=== PATIENT | female | born 1950 | race Caucasian/White ===

== ENCOUNTER 2016-06-05 10:51 | Emergency (ER) | payer OTHER, MEDICARE ==
[2016-06-05 11:05] VITALS: BP 124/91; BMI 32.8
[2016-06-05] MEDS ORDERED: BACITRACIN ZINC ONE (11:26)
--- NOTE | 2016-06-05 11:36 | DR.LACERAT ---
HPI - Time Seen Time seen: 11:05 - Primary Care Physician Primary Care Physician: Candie CHUNG - Complaints Chief Complaint Doctors Comments: Patient fell out of bed and injured left knee sustained a 10cm laceration. Deines pain. Chief Complaint:: PT. FELL OUT OF HER BED THIS MORNING, HURTING HER LEFT KNEE. LACERATION TO LEFT KNEE THAT IS CIRCULAR IN NATURE. - Source History Provided: Patient - Mode of Arrival Mode of Arrival: Ambulatory - Timing Onset of Chief Complaint: 06/05/16 PMH - PMH Past Medical History: Yes Past Medical History: Arthritis Past Surgical History: Yes Surgical History: Ortho Surgery - Family History History of Family Medical Conditions: Yes Family Medical History: Hypertension - Social History Does patient currently use any type of tobacco product: Yes Have you used tobacco products in the last 12 months: Yes Type of Tobacco Use: Cigarettes Does any household member use tobacco: No Alcohol Use: None Do you use any recreational Drugs:: No Lives With: Spouse Lives Where: Home - infectious screening In the last 2 months have you had wt loss of >10#?: NO Have you had fever, night sweats or hemotysis?: No Have you traveled outside the country in the last 6 months?: No Isolation: Standard ROS - Review of Systems Constitutional: No Symptoms Reported Eyes: No Symptoms Reported ENTM: No Symptoms Reported, Hearing Loss Cardiovascular: No Symptoms Reported Gastrointestinal/Abdominal: No Symptoms Reported Genitourinary: No Symptoms Reported Neurological: No Symptoms Reported Musculoskeletal: No Symptoms Reported Integumentary: Other (laceration of left knee) Hematologic/Lymphatic: No Symptoms Reported Endocrine: No Symptoms Reported Psychiatric: No Symptoms Reported All Other Systems: Reviewed and Negative PE - Vital Signs Vitals: Temperature 98.6 F Pulse Rate 96 Respiratory Rate 16 Blood Pressure 124/91 O2 Sat by Pulse Oximetry 991 - General Limitations: No Limitations General Appearance: Alert, In No Apparent Distress - Head Head Exam: Normal Inspection, Atraumatic - ENT ENT Exam: Normal Exam - Neck Neck Exam: Normal Inspection - Chest Chest Inspection: Normal Inspection - Respiratory Respiratory Exam: Normal Lung Sounds Bilat Respiratory Exam: Bilateral Clear to Auscultation - Cardiovascular Cardiovascular Exam: Regular Rate - Abdominal Exam Abdominal Exam: Normal Inspection, Normal Bowel Sounds Abdominal Tenderness: negative: RUQ, RLQ, LUQ, LLQ, Epigastrium, Suprapubic, Diffuse, Mild, Moderate, Severe, Other - Extremities Extremities Exam: Normal Inspection, Other (left knee with a 10 cm laceration ) - Back Back Exam: Normal Inspection - Neurologic Neurological Exam: Alert, Oriented X3, CN II-XII Intact - Psychiatric Psychiatric Exam: Normal Affect - Skin Skin Exam: negative: Intact (left knee laceration) Type of Lesion: Rash Distribution: Generalized Description: Size (10cn) Course - Reevaluation 1st: Improved Procedures - Laceration/Wound Repair Left Knee Wound Length (cm): 10 Wound's Depth, Shape: Irregular Wound Explored: clean Anesthesia: 1% Lidocaine Volume Anesthetic (ccs): 10 Wound Repaired With: sutures (12) Suture Size/Type: 3:0, Ethilion, Other (hilda 5) - Diagnosis Discharge Problem: Laceration of knee, left Qualifiers: Encounter type: initial encounter Qualified Code(s): S81.012A - Laceration without foreign body, left knee, initial encounter - Discharge Plan Condition: Stable - Follow ups/Referrals Follow ups/Referrals: LEA CHUNG [Primary Care Provider] - 3 days - Instructions
[2016-06-05] MEDS ORDERED: BACTROBAN OINT TOP ONE (11:46)
== END 2016-06-05 11:47 | disposition home or self-care (01) ==
LOC: ER 10:56
PROC: 0SQD0ZZ Repair Left Knee Joint, Open Approach (ICD-10-PCS; principal; 2016-06-05)
DX: S81.012A Laceration without foreign body, left knee, initial encounter (principal); W06.XXXA Fall from bed, initial encounter; Y92.9 Unspecified place or not applicable
CPT/HCPCS: 12004; 99282

== ENCOUNTER → 2016-06-19 | Outpatient (CLI) | payer OTHER, MEDICARE ==
[2016-06-05 11:05] VITALS: BP 124/91
--- NOTE | 2016-06-20 14:50 | MRI ---
History: Chronic right hip pain. Technique: Multiplanar, multi sequence MR imaging of the right hip was performed without contrast. Comparison: MRI of the pelvis dated 03/03/2013. Findings: Visualized osseous structures demonstrate normal bone marrow signal without evidence of osteonecrosi s, stress reaction, or stress fracture. Large [id number] coronal STIR images through the pelvis demonstrate fluid within the trochanteric bursae bilaterally right more so than left, and in keeping with trochanteric bursitis. There are po stsurgical changes noted in the right greater trochanter consistent with previous gluteal tendon rep air. There is a recurrent partial thickness tear of the gluteus medius tendon at its insertion. Ther e is a focal full-thickness tear of the posterior gluteus minimus at its insertion which measure 8 m m in AP dimension. There is severe fatty atrophy of the gluteus medius and minimus bilaterally, as d emonstrated on coronal T1 large ggdva-dh-ipng imaging. There is no significant hip effusion. There is mild bilateral hip osteoarthrosis. There is a tear of the superior labrum of the right hip. Large ypeln-gq-vvar coronal T1 images demonstrate over covera ge of the femoral heads bilaterally with a center edge angles of greater than 50, this can be assoc iated with the clinical diagnosis of femoroacetabular impingement. In addition, there is mild thicke emmanuel of the iliofemoral ligament of the right hip. There is fluid within the right obturator externu s bursa compatible with bursitis. There is tendinosis of the hamstring origin bilaterally. Impression: 1. Focal full-thickness tear of the posterior gluteus minimus of the right hip. There is a partial t hickness tear of the right gluteus medius. There is severe fatty atrophy of the gluteus medius and m inimus bilaterally. 2. Bilateral trochanteric bursitis 3. Right obturator externus bursitis. 4. Mild bilateral hip osteoarthrosis. There is a superior labral tear of the right hip. 5. Over coverage of the femoral heads bilaterally which can be associated with the clinical diagnosi s of femoroacetabular impingement. 6. Tendinosis of the right hamstring origin. 7. Other findings as discussed above. Reported By:
== END ==
LOC: RAD 11:42
PROVIDERS: ATTEND Nurse Practitioner Family
DX: M25.551 Pain in right hip (principal); M16.11 Unilateral primary osteoarthritis, right hip
CPT/HCPCS: 73721

== ENCOUNTER → 2017-01-15 | Outpatient (CLI) | payer OTHER ==
--- NOTE | 2017-01-15 10:39 | MRI ---
MRI left knee without contrast Indication: Knee pain after twisting injury Comparison: Radiographs 12/20/2014 Technique: Multiplanar multi sequence MR images of the left knee were obtained without contrast. Findings: No acute fracture or dislocation. There is diffuse moderate to advanced tricompartmental ch ondrosis, with areas of full-thickness chondral thinning along the central weight-bearing medial comp artment and along the lateral patellar facet. There is minimal subchondral marrow edema along the lat eral patellar facet and medial tibial plateau. Moderate tricompartmental marginal osteophytosis is no fiona. There is diffuse free edge fraying of the bilateral menisci, with maceration of the lateral meniscal anterior horn, associated with a 6 x 5 mm parameniscal cyst (image 27, series 801).. Additionally, th ere is oblique horizontal tear of the medial meniscal posterior horn and root. There is mucoid degeneration of the otherwise intact ACL. The PCL, mcl, major lateral stabilizers, an d extensor mechanism are intact. There is a small joint effusion. No large intra-articular loose body identified. No popliteal cyst. There is nonspecific subcutaneous edema about the knee, without discr ete collection. Impression: 1. Moderate to advanced tricompartmental DJD, with areas of high-grade chondrosis in the weight-beari ng medial compartment and along the lateral patellar facet. 2. Maceration of the lateral meniscal anterior horn with associated subcentimeter parameniscal cyst. Oblique horizontal tear of the medial meniscal posterior horn/root. Diffuse meniscal free edge frayin g bilaterally. 3. Mucoid ACL, small joint effusion. Reported By:
== END | disposition home or self-care (01) | DRG 556 ==
LOC: RAD 08:20
PROVIDERS: ATTEND Nurse Practitioner Family
DX: M25.562 Pain in left knee (principal); M17.12 Unilateral primary osteoarthritis, left knee; R26.2 Difficulty in walking, not elsewhere classified; S83.282A Other tear of lateral meniscus, current injury, left knee, initial encounter; X58.XXXA Exposure to other specified factors, initial encounter; M25.462 Effusion, left knee
CPT/HCPCS: 73721

== ENCOUNTER 2021-08-20 14:18 | Inpatient (IN) ==
[2021-08-20] MEDS ORDERED: ZOSYN VIAL 3.375 GRAMS 3.375 G in NS 100 ML IV 100 ML IV SCH (17:11)
[2021-08-20] MEDS ORDERED: PHARMACY CONSULT - VANCOMYCIN XX SCH (17:11)
[2021-08-20 18:03] VITALS: BMI 30.4
[2021-08-20 18:10] LABS: BASOPHILS # (AUTO) 0.1 X10^3/uL (0.0-0.1); BASOPHILS % (AUTO) 0.7 % (0.2-1.0); EOSINOPHILS # (AUTO) 0.1 x10^3/uL (0.0-0.2); EOSINOPHILS % (AUTO) 1.1 % (0.9-2.9); HEMATOCRIT 34.7 % (36.0-47.0); HEMOGLOBIN 12.3 g/dL (12.0-16.0); LYMPHOCYTES # (AUTO) 1.2 X10^3/uL (1.3-2.9); LYMPHOCYTES % (AUTO) 13.7 % (21.0-51.0); MEAN CORPUSCULAR HEMOGLOBIN 30.9 pg (27.0-34.0); MEAN CORPUSCULAR HGB CONC 35.4 g/dL (33.0-35.0); MEAN CORPUSCULAR VOLUME 87.4 fL (80.0-100.0); MEAN PLATELET VOLUME 7.6 fL (7.4-11.0); MONOCYTES # (AUTO) 1.2 x10^3/uL (0.3-0.8); NEUTROPHILS # (AUTO) 5.9 x10^3/uL (2.2-4.8); NEUTROPHILS % (AUTO) 70.5 % (42.0-75.0); RED BLOOD COUNT 3.97 X10^6/uL (3.5-5.4); RED CELL DISTRIBUTION WIDTH 14.2 % (11.6-16.5); WHITE BLOOD COUNT 8.4 X10^3/uL (3.6-10.0)
[2021-08-20 18:59] LABS: ALANINE AMINOTRANSFERASE 32 Units/L (12-78); ALBUMIN 3.4 g/dL (3.4-5.0); ALKALINE PHOSPHATASE 75 Units/L (46-116); ASPARTATE AMINO TRANSFERASE 42 Units/L (15-37); BLOOD UREA NITROGEN 16 mg/dL (7-18); CALCIUM 8.1 mg/dL (8.5-10.1); CARBON DIOXIDE 32.4 mmol/L (21-32); CHLORIDE 83 mmol/L (98-107); TOTAL PROTEIN 6.4 g/dL (6.4-8.2); eGFR NON BLACK RACES 36 (>60)
[2021-08-20 19:06] LABS: SODIUM 121 mmol/L (136-145)
[2021-08-20] MEDS ORDERED: MICRO K EXTEN CAP 10 MEQ PO PRN (19:10)
[2021-08-20] MEDS ORDERED: POTASSIUM CHL 40 MEQ/NS 0.45% 500 ML IV PRN (19:10)
[2021-08-20] MEDS ORDERED: KLOR-CON PO PRN (19:10)
[2021-08-20] MEDS ORDERED: K-RIDER 10 MEQ/NS 100 ML 10 MEQ/100 ML BAG IV PRN (19:10)
[2021-08-20] MEDS ORDERED: POTASSIUM CHL 60 MEQ/NS 0.45% 500 ML IV PRN (19:10)
[2021-08-20] MEDS ORDERED: POTASSIUM CHLORIDE LIQ 20 MEQ UDC PO PRN (19:10)
[2021-08-20] MEDS ORDERED: MAGNESIUM SULFATE 1 GRAM/100 mL PREMIX 1 G/100 ML BAG IV PRN (19:10)
[2021-08-20] MEDS: NS 1,000 ML IV 1,000 ML IV SCH (19:23)
[2021-08-20] MEDS: K-DUR TAB 20 MEQ PO PRN ×2 (19:25→21:52)
[2021-08-20] MEDS ORDERED: VANCOMYCIN HCL ONE (19:39)
[2021-08-20] MEDS ORDERED: NS 250 ML IV 250 ML IV ONE (19:39)
[2021-08-20] MEDS: VANCOMYCIN 1 GRAM PREMIX (ADDVANTAGE) 250 ML IV ONE ×3 (19:42→19:43)
[2021-08-20] MEDS: TORADOL 30 MG VIAL IVP PRN (20:00)
[2021-08-20] MEDS ORDERED: VANCOMYCIN 1 GRAM PREMIX (ADDVANTAGE) 250 ML IV SCH (20:00)
[2021-08-20] MEDS: ZOSYN VIAL 3.375 GRAMS 3.375 G in NS 100 ML IV 100 ML IV SCH (21:20)
--- NOTE | 2021-08-20 21:46 | RAD ---
HISTORYRIGHT LOWER EXT. CELLULITISSTUDYCHEST, 1 VIEWCOMPARISONNone availableTECHNIQUEChest radiographic imaging, AP portable projection, 1 imageFINDINGSNo cardiomegaly.No focal airspace disease.No pleural effusion.No pneumothorax.No acute osseous abnormality.IMPRESSIONNo imaging findings of acute cardiopulmonary disease.Electronically signed by: Manohar Humphrey (Aug 20, 2021 21:45:51)
[2021-08-21] MEDS: K-DUR TAB 20 MEQ PO PRN ×2 (00:11→09:28)
[2021-08-21] MEDS: TORADOL 30 MG VIAL IVP PRN (03:57)
[2021-08-21] MEDS: TYLENOL 325 MG TAB PO PRN ×2 (03:58→18:26)
[2021-08-21] MEDS ORDERED: NS 100 ML IV 100 ML ONE (04:54)
[2021-08-21] MEDS: ZOSYN VIAL 3.375 GRAMS 3.375 G in NS 100 ML IV 100 ML IV SCH ×3 (05:03→21:07)
[2021-08-21 05:18] LABS: BASOPHILS # (AUTO) 0.1 X10^3/uL (0.0-0.1); BASOPHILS % (AUTO) 0.7 % (0.2-1.0); EOSINOPHILS # (AUTO) 0.1 x10^3/uL (0.0-0.2); EOSINOPHILS % (AUTO) 1.9 % (0.9-2.9); HEMATOCRIT 32.2 % (36.0-47.0); HEMOGLOBIN 11.5 g/dL (12.0-16.0); LYMPHOCYTES # (AUTO) 1.3 X10^3/uL (1.3-2.9); LYMPHOCYTES % (AUTO) 17.1 % (21.0-51.0); MEAN CORPUSCULAR HEMOGLOBIN 31.2 pg (27.0-34.0); MEAN CORPUSCULAR HGB CONC 35.6 g/dL (33.0-35.0); MEAN CORPUSCULAR VOLUME 87.8 fL (80.0-100.0); MEAN PLATELET VOLUME 7.8 fL (7.4-11.0); MONOCYTES # (AUTO) 1.1 x10^3/uL (0.3-0.8); MONOCYTES % (AUTO) 14.6 % (0.0-13.0); NEUTROPHILS # (AUTO) 4.9 x10^3/uL (2.2-4.8); NEUTROPHILS % (AUTO) 65.7 % (42.0-75.0); RED BLOOD COUNT 3.67 X10^6/uL (3.5-5.4); RED CELL DISTRIBUTION WIDTH 13.9 % (11.6-16.5); WHITE BLOOD COUNT 7.4 X10^3/uL (3.6-10.0)
[2021-08-21 05:28] LABS: ALANINE AMINOTRANSFERASE 30 Units/L (12-78); ALKALINE PHOSPHATASE 68 Units/L (46-116); ASPARTATE AMINO TRANSFERASE 38 Units/L (15-37); BLOOD UREA NITROGEN 14 mg/dL (7-18); CALCIUM 8.2 mg/dL (8.5-10.1); CARBON DIOXIDE 29.4 mmol/L (21-32); CHLORIDE 91 mmol/L (98-107); CREATININE 1.23 mg/dL (0.55-1.02); SODIUM 126 mmol/L (136-145); TOTAL PROTEIN 5.8 g/dL (6.4-8.2); eGFR NON BLACK RACES 46 (>60)
[2021-08-21] MEDS: NS 1,000 ML IV 1,000 ML IV SCH ×3 (06:11→20:44)
[2021-08-21] MEDS: NORCO 7.5/325 MG TAB PO PRN ×3 (09:10→23:18)
[2021-08-21] MEDS: VANCOMYCIN IV *PREMIX 1 G/200 ML BAG 1 G/200 ML PIGGYBACK IV SCH (09:28)
[2021-08-21] MEDS ORDERED: LINZESS PO SCH (10:00)
[2021-08-21] MEDS: FLEXERIL TAB 10 MG PO SCH ×3 (10:33→21:05)
[2021-08-21] MEDS: NORVASC TAB 5 MG PO SCH (10:34)
[2021-08-21] MEDS: MOBIC TAB 15 MG PO SCH (10:34)
[2021-08-21] MEDS: TOPAMAX TAB 100 MG PO SCH ×2 (10:34→10:51)
[2021-08-21] MEDS: PEPCID TAB 20 MG PO SCH ×2 (10:34→20:32)
[2021-08-21] MEDS: TENORMIN PO SCH ×2 (10:35→20:33)
[2021-08-21] MEDS: ZAROXOLYN PO SCH (10:45)
[2021-08-21] MEDS ORDERED: NS 250 ML IV 250 ML IV ONE (14:41)
[2021-08-21] MEDS: LOVENOX INJ 40 MG SYR SC SCH (17:53)
[2021-08-21] MEDS ORDERED: VANCOMYCIN 1 GRAM PREMIX (ADDVANTAGE) 250 ML IV SCH (18:00)
[2021-08-21] MEDS: K-DUR TAB 20 MEQ PO SCH (20:31)
[2021-08-21] MEDS ORDERED: SINGULAIR TAB 10 MG PO SCH (21:00)
[2021-08-21] MEDS ORDERED: ZyrTEC TAB 10 MG PO SCH (21:00)
[2021-08-21] MEDS ORDERED: RESTORIL CAP 15 MG PO SCH (21:00)
[2021-08-21] MEDS ORDERED: SEROquel TAB 25 mg PO SCH (21:00)
[2021-08-21] MEDS ORDERED: ZOCOR TAB 40 MG PO SCH (21:00)
[2021-08-21] MEDS: SANTYL EXT SCH (22:48)
[2021-08-22 04:12] LABS: BASOPHILS % (AUTO) 0.3 % (0.2-1.0); EOSINOPHILS # (AUTO) 0.1 x10^3/uL (0.0-0.2); EOSINOPHILS % (AUTO) 1.6 % (0.9-2.9); HEMATOCRIT 32.2 % (36.0-47.0); HEMOGLOBIN 11.4 g/dL (12.0-16.0); LYMPHOCYTES # (AUTO) 1.1 X10^3/uL (1.3-2.9); LYMPHOCYTES % (AUTO) 18.3 % (21.0-51.0); MEAN CORPUSCULAR HEMOGLOBIN 31.8 pg (27.0-34.0); MEAN CORPUSCULAR HGB CONC 35.3 g/dL (33.0-35.0); MEAN PLATELET VOLUME 7.9 fL (7.4-11.0); MONOCYTES # (AUTO) 0.9 x10^3/uL (0.3-0.8); MONOCYTES % (AUTO) 14.5 % (0.0-13.0); NEUTROPHILS # (AUTO) 4.1 x10^3/uL (2.2-4.8); NEUTROPHILS % (AUTO) 65.3 % (42.0-75.0); RED BLOOD COUNT 3.58 X10^6/uL (3.5-5.4); RED CELL DISTRIBUTION WIDTH 14.4 % (11.6-16.5); WHITE BLOOD COUNT 6.2 X10^3/uL (3.6-10.0)
[2021-08-22 04:19] LABS: ALANINE AMINOTRANSFERASE 27 Units/L (12-78); ALBUMIN 2.7 g/dL (3.4-5.0); ALKALINE PHOSPHATASE 64 Units/L (46-116); ASPARTATE AMINO TRANSFERASE 27 Units/L (15-37); BLOOD UREA NITROGEN 12 mg/dL (7-18); CALCIUM 7.8 mg/dL (8.5-10.1); CARBON DIOXIDE 26.2 mmol/L (21-32); CHLORIDE 98 mmol/L (98-107); COR CA(FOR HYPOALB) 8.8 mg/dL (8.5-10.1); COR NA(FOR HYPERGLY) 131 mmol/L (136-145); CREATININE 1.12 mg/dL (0.55-1.02); SODIUM 131 mmol/L (136-145); TOTAL PROTEIN 5.4 g/dL (6.4-8.2); eGFR NON BLACK RACES 51 (>60)
[2021-08-22] MEDS: FLEXERIL TAB 10 MG PO SCH ×2 (05:31→15:09)
[2021-08-22] MEDS: ZOSYN VIAL 3.375 GRAMS 3.375 G in NS 100 ML IV 100 ML IV SCH (05:32)
[2021-08-22] MEDS: SANTYL EXT SCH ×2 (05:32→15:09)
[2021-08-22] MEDS: K-DUR TAB 20 MEQ PO SCH (08:13)
[2021-08-22] MEDS: TENORMIN PO SCH (08:14)
[2021-08-22] MEDS: LOVENOX INJ 40 MG SYR SC SCH (08:14)
[2021-08-22] MEDS: NORVASC TAB 5 MG PO SCH (08:15)
[2021-08-22] MEDS: MOBIC TAB 15 MG PO SCH (08:15)
[2021-08-22] MEDS: ZAROXOLYN PO SCH (08:16)
[2021-08-22] MEDS: VANCOMYCIN IV *PREMIX 1 G/200 ML BAG 1 G/200 ML PIGGYBACK IV SCH (08:16)
[2021-08-22] MEDS: PEPCID TAB 20 MG PO SCH (08:16)
[2021-08-22] MEDS: NS 1,000 ML IV 1,000 ML IV SCH (08:31)
[2021-08-22] MEDS: NORCO 7.5/325 MG TAB PO PRN ×2 (08:47→15:10)
--- NOTE | 2021-08-22 09:13 | DR.H&P ---
H&P Allergies Allergies Allergy/AdvReac Type Severity Reaction Status Date / Time No Known Drug Allergies Allergy Verified 04/01/21 17:41 Past Medical History Past Medical History: Hypertension Past Surgical History Surgical History: Hysterectomy and Ortho Surgery Family History Family Medical History: Sudden Cardiac Social History Alcohol Use: None Drug Use: None Medications Home Medications: No Known Drug Allergies Allergy (Verified 04/01/21 17:41) CONTINUE taking the following medications amlodipine 5 mg tablet 5 mg PO DAILY 08/21/21 [History] atenolol 25 mg tablet 25 mg PO BID 08/21/21 [History] cetirizine 10 mg tablet 10 mg PO HS 08/21/21 [History] famotidine 20 mg tablet 20 mg PO BID 08/21/21 [History] linaclotide 145 mcg capsule (Linzess) 145 mcg PO DAILY 08/21/21 [History] meloxicam 15 mg tablet 15 mg PO DAILY 08/21/21 [History] metolazone 2.5 mg tablet 2.5 mg PO DAILY 08/21/21 [History] potassium chloride 20 mEq tablet,extended release(part/cryst) 20 meq PO BID 08/21/21 [History] quetiapine 25 mg tablet 25 mg PO HS 08/21/21 [History] simvastatin 40 mg tablet 40 mg PO HS 08/21/21 [History] temazepam 30 mg capsule 30 mg PO HS 08/21/21 [History] Labs Result Diagrams: 08/22/21 03:35 08/22/21 03:35 Labs: 08/20/21 18:26 Leg - Left Wound Gram Stain - Final 08/20/21 18:26 Leg - Left Wound Culture - Preliminary 08/20/21 18:26 Knee - Left Wound Gram Stain - Final 08/20/21 18:26 Knee - Left Wound Culture - Preliminary 08/20/21 18:26 Leg - Right Wound Gram Stain - Final 08/20/21 18:26 Leg - Right Wound Culture - Preliminary Laboratory WBC 6.2 X10^3/uL (3.6-10.0) 08/22/21 03:35 RBC 3.58 X10^6/uL (3.5-5.4) 08/22/21 03:35 Hgb 11.4 g/dL (12.0-16.0) L 08/22/21 03:35 Hct 32.2 % (36.0-47.0) L 08/22/21 03:35 MCV 90.0 fL (80.0-100.0) 08/22/21 03:35 MCH 31.8 pg (27.0-34.0) 08/22/21 03:35 MCHC 35.3 g/dL (33.0-35.0) H 08/22/21 03:35 RDW 14.4 % (11.6-16.5) 08/22/21 03:35 Plt Count 329 X10^3/uL (150.0-450.0) 08/22/21 03:35 MPV 7.9 fL (7.4-11.0) 08/22/21 03:35 Neut % (Auto) 65.3 % (42.0-75.0) 08/22/21 03:35 Lymph % (Auto) 18.3 % (21.0-51.0) L 08/22/21 03:35 [place]berry % (Auto) 14.5 % (0.0-13.0) H 08/22/21 03:35 Eos % (Auto) 1.6 % (0.9-2.9) 08/22/21 03:35 Baso % (Auto) 0.3 % (0.2-1.0) 08/22/21 03:35 Neut # (Auto) 4.1 x10^3/uL (2.2-4.8) 08/22/21 03:35 Lymph # (Auto) 1.1 X10^3/uL (1.3-2.9) L 08/22/21 03:35 [place]berry # (Auto) 0.9 x10^3/uL (0.3-0.8) H 08/22/21 03:35 Eos # (Auto) 0.1 x10^3/uL (0.0-0.2) 08/22/21 03:35 Baso # (Auto) 0.0 X10^3/uL (0.0-0.1) 08/22/21 03:35 Absolute Nucleated RBC 0.0 /100WBC 08/22/21 03:35 Sodium 131 mmol/L (136-145) L 08/22/21 03:35 Corrected Sodium 131 mmol/L (136-145) L 08/22/21 03:35 Potassium 3.6 mmol/L (3.5-5.1) 08/22/21 03:35 Chloride 98 mmol/L (98-107) 08/22/21 03:35 Carbon Dioxide 26.2 mmol/L (21-32) 08/22/21 03:35 BUN 12 mg/dL (7-18) 08/22/21 03:35 Creatinine 1.12 mg/dL (0.55-1.02) H 08/22/21 03:35 Est GFR (MDRD) Af Amer > 60 (>60) 08/22/21 03:35 Est GFR (MDRD) Non-Af 51 (>60) L 08/22/21 03:35 Glucose 118 mg/dL (65-99) H 08/22/21 03:35 Calcium 7.8 mg/dL (8.5-10.1) L 08/22/21 03:35 Corrected Calcium 8.8 mg/dL (8.5-10.1) 08/22/21 03:35 Magnesium 2.0 mg/dL (1.7-2.9) 08/20/21 18:40 Total Bilirubin 0.40 mg/dL (0.2-1.0) 08/22/21 03:35 AST 27 Units/L (15-37) 08/22/21 03:35 ALT 27 Units/L (12-78) 08/22/21 03:35 Alkaline Phosphatase 64 Units/L (46-116) 08/22/21 03:35 Total Protein 5.4 g/dL (6.4-8.2) L 08/22/21 03:35 Albumin 2.7 g/dL (3.4-5.0) L 08/22/21 03:35 Globulin 2.7 g/dL (2.5-4.5) 08/22/21 03:35 Albumin/Globulin Ratio 1.0 Ratio (1.1-2.1) L 08/22/21 03:35 Physical Exam Vital Signs: Temperature 97.8 F Pulse Rate [Apical] 64 Respiratory Rate 20 Blood Pressure [Right Arm] 135/65 Blood Pressure 122/78 O2 Sat by Pulse Oximetry 96
--- NOTE | 2021-08-22 09:19 | DR.CONSULT ---
CONSULT Consultation for Day of: Date: 08/21/21 Chief Complaint Chief Complaint: Poorly healing wound right distal , lateral calf with question of cellulitis. Allergies Allergies Allergy/AdvReac Type Severity Reaction Status Date / Time No Known Drug Allergies Allergy Verified 04/01/21 17:41 History of Present Illness History of Present Illness: 71 yo female followed as outpatient for wound to her right distal , lateral calf received as result of a fall a couple of weeks ago. Has similar but smaller wounds to her left proximal Past Medical History Past Medical History: COPD, Depression, GERD and Hypertension Additional Medical History: Fibromyalgia Past Surgical History Surgical History: Hysterectomy and Ortho Surgery Family History Family Medical History: Sudden Cardiac Social History Does patient currently use any type of tobacco product: Yes Have you used tobacco products in the last 12 months: Yes Type of Tobacco Use: Cigarettes How many years tobacco product used: 50 Alcohol Use: None Drug Use: None Medications Home Medications: No Known Drug Allergies Allergy (Verified 04/01/21 17:41) CONTINUE taking the following medications amlodipine 5 mg tablet 5 mg PO DAILY 08/21/21 [History] atenolol 25 mg tablet 25 mg PO BID 08/21/21 [History] cetirizine 10 mg tablet 10 mg PO HS 08/21/21 [History] famotidine 20 mg tablet 20 mg PO BID 08/21/21 [History] linaclotide 145 mcg capsule (Linzess) 145 mcg PO DAILY 08/21/21 [History] meloxicam 15 mg tablet 15 mg PO DAILY 08/21/21 [History] metolazone 2.5 mg tablet 2.5 mg PO DAILY 08/21/21 [History] potassium chloride 20 mEq tablet,extended release(part/cryst) 20 meq PO BID 08/21/21 [History] quetiapine 25 mg tablet 25 mg PO HS 08/21/21 [History] simvastatin 40 mg tablet 40 mg PO HS 08/21/21 [History] temazepam 30 mg capsule 30 mg PO HS 08/21/21 [History] Hydrocodone 10/325 , 1 Q 4 hrs PRN pain Review of Systems Constitutional: See HPI Eyes: No Symptoms Reported Respiratory: No Symptoms Reported Cardiovascular: No Symptoms Reported Gastrointestinal: Constipation (Has been on Linzess) Physical Exam Vital Signs: Temperature 97.8 F Pulse Rate [Apical] 64 Respiratory Rate 20 Blood Pressure [Right Arm] 135/65 Blood Pressure 122/78 O2 Sat by Pulse Oximetry 96 Oriented: Person and Place; negative Time Eyes: Normal Ear: Normal Nose: Normal Throat: Normal Respiratory: Diminished Throughout Cardiovascular: Normal and Other ( both feet relatively warm with no palpable pulses in either DP or PT arteries ) : Normal Auscultation: Bowel Sounds: Normal Palpation: Normal Tenderness: negative Normal, Diffuse, RUQ, RLQ, LUQ, LLQ, Epigastric, Periumbil ical, Suprapubic, Mild, Moderate, Severe, Rebound, Guarding, Rigidity or Other Skin: Other (8x3x 1cm ulcer , clean with eschar and no surrounfing drainage and no redness. 1cm diameter x 4 mm deep clean wound to superior left anterior thigh, 1.3 cm diameter x 4 mm deep distal anterir thight clean ulcer.) Musculoskeletal: Normal Psychiatric: Depression Mood Description: Apathetic and Depressed Affect: Flat Speech Pattern: Clear Plan (1) Wound of right leg: Status: Acute Narrative Support Text: Santyl to wounds daily, obtain LE arterial duplex and ABIs both LE. (2) Cellulitis of right anterior lower leg: Status: Acute Narrative Support Text: Plan to treat as you are doing with antibiotics, Will need to cover Streptococcus and and MRSA. Dress wound with daily Santyl. Obtain
--- NOTE | 2021-08-22 10:26 | DR.UPDATE ---
H&P Update History and Physical Update: History and Physical reviewed and patient examined. Changes noted: Yes with the following: PATIENT WAS ADMITTED FOR TREATMENT OF RIGHT LOWER EXTREMITY CELLULITIS AND A NON-HEALING WOUND. SHE HAS BEEN TAKING KEFLEX WITHOUT IMPROVEMENT IN SYMPTOMS. PATIENT WAS ADMITTED FOR IV ANTIBIOTICS. ON ARRIVAL TO THE HOSPTIAL, VITALS WERE 97.5-90-20-100-135/66. LABS WERE OBTAINED. WBC 8.4, RBC 3.97, HGB 12.3, HCT 34.7, PLT COUNT 381, SODIUM 121, POTASSIUM 1.9, CHLORIDE 83, CARBON DIOXIDE 32.4, BUN 16, CREATININE 1.50, GLUCOSE 85, CALCIUM 8.1, AST 42, ALT 32, ALK PHOS 75, TOTAL PROTEIN 6.4, ALBUMIN 3.4. WE OBTAINED BLOOD AND WOUND CULTURES. SHE WAS STARTED ON NORMAL SALINE AT 125ML/HR, VANCOMYCIN 1G IV DAILY, ZOSYN 3.375G IV TID, TORADOL 30MG IV Q8H PRN, THE POTASSIUM AND MAGNESIUM PROTOCOLS, AND HER HOME MEDICATIONS WERE RESUMED. WE WILL CONSULT , GENERAL SURGEON, FOR POSSIBLE DEBRIDEMENT OF WOUNDS. OTHERWISE, WE WILL FOLLOW-UP WITH AM LABS AND CONTINUE TO MONITOR. TIME SPENT ON CLINICAL ASSESSMENT, REVIWING LABS AND IMAGING, DECISION MAKING, AND DOCUMENTATION GREATER THAN 75 MINUTES. DX: RIGHT LOWER EXTREMITY CELLULITIS, NON-HEALING WOUND TO RIGHT LOWER EXTREMITY, HYPOKALEMIA, HYPONATREMIA. Prescription drug monitoring program results: PDMP reviewed and no concerns identified H&P Reviewed: Yes Patient was examined?: Yes
--- NOTE | 2021-08-22 13:26 | VAS ---
HISTORYReason For StudySTUDYANKLE BRACHIAL INDEX, bilateral TON determination is performedCOMPARISONNoneFINDINGSRight TON is 1.7 and left TON is 1.7. These values are high suggesting difficulty occluding the arteries from atherosclerotic disease. However, no evidence of hemodynamically significant stenosis is suggested.IMPRESSIONElevated TON may be from diffuse atherosclerotic hardening of the arteries. No evidence of hemodynamically significant stenosis is seen.Electronically signed by: Tobi Chase (Aug 22, 2021 13:24:34)
--- NOTE | 2021-08-22 15:18 | VAS ---
LOWER EXT ARTERIAL duplex ultrasoundHISTORY:Nonhealing woundsComparison:NoneTechnique:Multiple bobo scale and color flow Doppler images of the right and left lower extremity arterial system were obtained. Interrogation of the common femoral artery, superficial femoral artery, popliteal artery, and tibial arteries was performed.Findings:Mostly triphasic waveforms are seen bilaterally, except in the SCOREKEEPER where there are monophasic waveforms. Monophasic waveform is seen in the right DPA with biphasic waveform in the left DPA.Right extremity:Common femoral : 82 cm/sSuperficial femoral proximal: 88 cm/sSuperficial femoral mid: 131 cm/sSuperficial femoral distal : 122 cm/sPopliteal : 105 cm/sPosterior tibial : 110 cm/sAnterior tibial /dorsalis pedis: 65 cm/sLeft extremity:Common femoral : 143 cm/sSuperficial femoral proximal: 118 cm/sSuperficial femoral mid: 144 cm/sSuperficial femoral distal :164 cm/sPopliteal : 73 cm/sPosterior tibial : 138 cm/sAnterior tibial /dorsalis pedis: 82 cm/sIMPRESSION:No velocities suggestive of hemodynamically significant stenosis of the right and left lower extremity arterial system.[email or web address].ncbi.nlm.nih.gov/pubmed/[email or web address] ronically signed by: Tobi Chase (Aug 22, 2021 15:16:55)
[2021-08-22 15:33] VITALS: BP 116/75
[2021-08-24] MEDS ORDERED: PHARMACY COMMENT IV NR (08:30)
== END 2021-08-22 16:00 | disposition home or self-care (01) | DRG 605 ==
LOC: ICU → OBSVTOIN 16:30
PROVIDERS: ADMIT Internal Medicine; ATTEND Internal Medicine
DX: B96.89 Other specified bacterial agents as the cause of diseases classified elsewhere; R94.31 Abnormal electrocardiogram [ECG] [EKG]; E87.6 Hypokalemia; L03.115 Cellulitis of right lower limb; J44.9 Chronic obstructive pulmonary disease, unspecified; E87.1 Hypo-osmolality and hyponatremia; S81.801A Unspecified open wound, right lower leg, initial encounter; X58.XXXA Exposure to other specified factors, initial encounter; I10 Essential (primary) hypertension; K21.9 Gastro-esophageal reflux disease without esophagitis